=== PATIENT | female | born 1960 | race Caucasian/White ===

== ENCOUNTER 2018-08-27 05:34 | Day surgery (SDC) | payer BC ==
--- NOTE | 2018-08-17 12:49 | HP ---
"CC: Dr. Konstantin Renteria; Dr. Alondra Reeves * ADMISSION HISTORY AND PHYSICAL: DATE OF ADMISSION: 08/27/18 ATTENDING SURGEON: Dr. Sade hTomas.* (DICTATED BY GUMARO ALVARENGA) CHIEF COMPLAINT: Hypercalcemia. HISTORY OF PRESENT ILLNESS: This is a 57-year-old generally healthy female, who on routine lab work in the fall of 2017 was found to have hypercalcemia. This was confirmed on repeat measurement and an intact PTH on 03/27/18 was elevated at 77.7 (upper limit of normal 73). She has had no symptoms or signs of hypercalcemia. Specifically, no known history of kidney stones or osteoporosis. She did undergo evaluation by Dr. Renteria and workup, which included an elevated 24-hour urine calcium. An ultrasound done on 04/08/18 showed bilateral thyroid nodules with calcifications measuring up to 9 mm in greatest dimension, but no evidence of additional nodules to account for a parathyroid adenoma. A nuclear medicine SPECT CT on that same date did show increased uptake in the lower pole of the right side possibly consistent with parathyroid adenoma. She did undergo fine needle aspiration biopsy of both thyroid nodules on 05/24/18 and these were benign. She was seen by Dr. Thomas on 05/17/18 and subsequently underwent a 4D CT scan of the neck, which showed no abnormalities in the neck itself. However, it did show a 4-cm ascending aortic aneurysm. She was referred for evaluation by Cardiology. Echocardiogram done on 07/06/18 did show fjgl-vq-yudgfnde dilation of the ascending aorta, measured at 4.3 cm. She was initiated on low-dose beta-bob by Dr. Lynch, which she has been taking, but not consistently (she was encouraged to maintain this consistently especially during the perioperative period). Her vitamin D and phosphorus levels have been normal. Dr. Thomas has discussed with her the indications for surgery, the risks, benefits, and alternatives. She understands the potential need for 4-gland exploration. She understands the expected perioperative course and would like to proceed as scheduled with parathyroidectomy. PAST MEDICAL HISTORY: Dilated ascending aorta as noted above. She has a single kidney as she donated a kidney to her brother. She has some evidence of fatty liver with mild elevation in transaminases. She has no history of heart disease per se, hypertension, asthma, COPD, or diabetes. No personal history of malignancy. She likely has some mixed hyperlipidemia. PAST SURGICAL HISTORY: Previous surgeries include , uterine ablation, and donation of kidney (she is not sure which side as it was done as laparoscopic- assisted). CURRENT MEDICATIONS: Atenolol 25 mg one-half tablet once daily. She takes no other uzro-zno-yxbbwuq medications or supplements on a regular basis. DRUG ALLERGIES: PENICILLIN (hives). FAMILY HISTORY: End-stage kidney disease in her brother as well as kidney stone disease in her father. No known history of anesthesia problems, bleeding or clotting disorders within her family. SOCIAL HISTORY: The patient is . She has 2 children living at home. 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 She denies use of tobacco. She drinks on average 5 drinks per week. She denies any other recreational drug use. REVIEW OF SYSTEMS: General: No recent constitutional symptoms or acute illnesses. Weight has been stable. HEENT: No problems reported. Cardiovascular: No chest pain, palpitations, or history of heart murmur. Respiratory: No history of asthma, chronic cough, or shortness of breath. GI: No problems reported. Colonoscopy done around age 50 for initial screening with no problems reported and no interval symptoms. : Single kidney. No other problems reported. SALES DEVELOPMENT MANAGER: She is up-to-date within the past year for breast exam and mammogram as well as within the past 3 to 5 years for pelvic exam and Pap smear, all reportedly normal. Endocrine: No diabetes or thyroid dysfunction. Thyroid function tests have been normal. Hyperparathyroidism as noted above. PHYSICAL EXAMINATION GENERAL: Well-nourished, mildly obese female, in no acute distress. VITAL SIGNS: Height 64 inches, weight 170 pounds. Blood pressure 118/82, pulse 60, respirations 16. HEENT: Pupils are equal, round, and reactive. EOMs intact. No conjunctival pallor. Oropharynx: Teeth in good repair. No intraoral lesions. Mucous membranes moist. NECK: No palpable masses or thyromegaly. No palpable lymphadenopathy. LUNGS: Clear to auscultation. No rales or wheezes. HEART: Regular rate and rhythm. No murmur noted. BREASTS: Not examined. ABDOMEN: Well-healed laparoscopic incisions as well as Pfannenstiel incision from the kidney donation. Soft, nontender to palpation. No palpable masses or organomegaly. GENITALIA: Not done. RECTAL: Not done. BACK: No spinous process or CVA tenderness. EXTREMITIES: No edema. NEUROLOGIC: Grossly intact. SKIN: Warm and dry. No suspicious rashes or lesions. IMPRESSION: Hyperparathyroidism; hypercalcemia. PLAN: Parathyroidectomy. GUMARO ALVARENGA [id number]/[facility] #: [id number] [facility]ERN[facility]"
[~2018-08-27 05:34] MED LIST: Buffered Lidocaine 1% SYRIN* 1 ML/SYRINGE INTRADERM ONE
[2018-08-27] MEDS ORDERED: Famotidine IV* 10 MG/ML 2 ML (20 mg) IV ONE (06:00)
[2018-08-27] MEDS ORDERED: Dexamethasone IV* 4 MG/ML 1 ML (4 MG) IV SLOW PU ONE (06:00)
[2018-08-27] MEDS ORDERED: Lactated Ringers 1000 ML Bag* 1,000 ML IV SCH (06:00)
[2018-08-27] MEDS ORDERED: Buffered Lidocaine 1% SYRIN* 1 ML/SYRINGE INTRADERM ONE (06:16)
[2018-08-27] MEDS ORDERED: Dexamethasone IV* 4 MG/ML 1 ML (4 MG) ONE (06:16)
[2018-08-27] MEDS ORDERED: Famotidine IV* 10 MG/ML 2 ML (20 mg) ONE (06:16)
[2018-08-27] MEDS ORDERED: Lidocaine 2% PF * 5 ML VIAL ONE (07:08)
[2018-08-27] MEDS ORDERED: fentaNYL* 50 MCG/ML 2 ML VIAL (100 MCG VIAL) ONE ×3 (07:08→09:59)
[2018-08-27] MEDS ORDERED: Succinylcholine* 20 MG/ML 10 ML VIAL ONE (07:08)
[2018-08-27] MEDS ORDERED: Midazolam* 1 MG/ML 5 ML VIAL (5 MG) ONE (07:08)
[2018-08-27] MEDS ORDERED: Propofol* 10 MG/ML 20 ML BTL ONE (07:08)
[2018-08-27] MEDS ORDERED: Lidocaine 1% INJ* 10 MG/ML 30 ML SDV ONE (07:10)
[2018-08-27] MEDS ORDERED: Bupivacaine 0.25% EPI 200,000* 30 ML SDV ONE (07:10)
[2018-08-27] MEDS ORDERED: Bupivacaine 0.25% SDV PF* 10 ML VIAL INJ ONE (07:11)
[2018-08-27] MEDS ORDERED: Naloxone* 0.4 MG/ML 1 ML VIAL IV PRN (07:38)
[2018-08-27] MEDS ORDERED: oxyCODONE/Acetamin 5/325 MG* TAB PO PRN (07:38)
[2018-08-27] MEDS ORDERED: DiMENhydriNATE IV* 50 MG/ML VIAL IV PUSH PRN (07:38)
[2018-08-27] MEDS ORDERED: fentaNYL* 50 MCG/ML 2 ML VIAL (100 MCG VIAL) IV PRN (07:38)
[2018-08-27] MEDS ORDERED: HYDROcodone/ACETAMIN 5-325 MG* 1 TAB PO PRN (07:38)
[2018-08-27] MEDS ORDERED: EPHEDrine (Pressors)* 50 MG/ML VIAL ONE (08:02)
[2018-08-27] MEDS ORDERED: Metoprolol Tartrate IV* 1 MG/ML 5 ML VIAL ONE (09:17)
[2018-08-27] MEDS ORDERED: PROCHLORPERAZINE INJ 5 MG/ML 2 ML VIAL ONE (10:02)
[2018-08-27] MEDS ORDERED: Ondansetron INJ* 2 MG/ML VIAL ONE (10:28)
[2018-08-27 12:27] VITALS: BP 133/79
--- NOTE | 2018-08-27 13:20 | OP ---
CC: Dr. Alondra Reeves; Dr. Konstantin Renteria* OPERATIVE REPORT: DATE OF OPERATION: 08/27/18 - [facility] DATE OF : 60 SURGEON: Sade Thomas MD ACCOUNTING MACHINE OPERATOR: Casandra Peacock MD ANESTHESIOLOGIST: Dr. Lamont Villafuerte. ANESTHESIA: General endotracheal anesthesia. PRE-OP DIAGNOSIS: Primary hyperparathyroidism. POST-OP DIAGNOSIS: Primary hyperparathyroidism. OPERATIVE PROCEDURE: Parathyroidectomy and 4-gland exploration. ESTIMATED BLOOD LOSS: Minimal, less than 10 cc. SPECIMEN: Right lower parathyroid. INDICATIONS FOR SURGERY: Ms. Caban is a very pleasant 57-year-old female with a history of primary hyperparathyroidism and she was also found to have elevated urinary calcium making her a candidate for a parathyroidectomy. She therefore wished to undergo a parathyroidectomy. She understood the risks, benefits, and alternatives to the procedure. She wished to proceed. Of note, on her preoperative imaging, one study the sestamibi showed uptake in the right lower thyroid region. DESCRIPTION OF PROCEDURE: The patient was brought back to the operating room and placed in the operating table in supine position, sequential compression devices were placed in the bilateral lower extremities for DVT prophylaxis. No antibiotics administered. The patient underwent general endotracheal anesthesia. The electrodes for the nerve monitor were attached. The patient's arms were tucked and her neck was extended. Prior to coming into the operating room, a midline has been placed to facilitate laboratory draws during the operation, time-out was performed verifying the patient's name, MR number, the procedure to be performed and then local anesthesia was infiltrated to her anterior neck. Local anesthesia consist of 0.25% Marcaine and 1% lidocaine. After this, the neck was prepped and draped in normal sterile fashion and prior to beginning the procedure, an additional time-out was performed verifying the patient's name, MR number and the procedure to be performed. Given that there was some evidence of localization in the right lower aspect of the thyroid gland , we began the exploration on the right side of the thyroid. An approximately 4 cm transverse incision was made in a natural crease sign about 3 fingerbreadths above the sternal notch. The skin was divided down to the subcutaneous tissue, the platysma was divided. The inferior and superior subplatysmal flaps were developed and then the median raphe between strap muscles was identified and divided. The isthmus was identified and the strap muscles were retracted laterally on either side. An Army-Tripp was used to retract the strap muscles on the right side and attention was turned towards developing the lateral space adjacent to the thyroid gland. Attention was turned towards first the right lower aspects of the thyroid. The right lower parathyroid was identified at the anterior lower aspect of the right thyroid lobe. It was clearly somewhat small, but also adenomatous in appearance. A small sample was taken for biopsy and it was confirmed with parathyroid tissue. Attention was turned towards the right upper, identified the right upper parathyroid, which was identified in its normal anatomic position posterior to the nerve and it appeared normal in appearance. After this, attention was turned towards the left side of the thyroid lobe. The strap muscles were retracted laterally and the lateral space adjacent to the thyroid was developed. The left upper parathyroid was identified very easily in a similar position to the right upper parathyroid and was posterior to the nerve. It did not appear to be adenomatous in appearance and then attention was turned towards identifying the left lower parathyroid. Despite extensive investigation and the normal location such as the diaphragmatic ligament adjacent to left thyroid lobe, there was one nodule that appeared to be left lower parathyroid that was very adherent to the thyroid lobe itself in a similar location to the right lower; however, this was not definitively identified. At this point, since the right lower parathyroid had been localized with sestamibi and it was clearly adenomatous, it was taken off of its pedicle and at that point x0, x5 and x10 blood samples were taken. Of note , the baseline were taken prior to beginning the operation. The laboratory values returned as baseline at 55.4, T0 at 21, T5 at 13.5 and T10 at 11.6. Given that [place] criterion was met, the decision was made to end the operation. Hemostasis was obtained on both the lateral neck and Tisseel was placed into lateral neck for hemostasis. Once this was done, the strap muscles were reapproximated using interrupted 3-0 Vicryl sutures. The platysma was reapproximated using 3-0 Vicryl sutures. Again, hemostasis was obtained and then the skin was closed using running 4-0 Prolene suture and then sterile dressing was placed. At the end of the case, all counts were correct and I was present during the entirety of the case. The patient's anesthesia was reversed and she was taken to the PACU in stable condition. [id number]/[facility] #: [id number] CARLOS
[2018-08-27] MEDS ORDERED: oxyCODONE/Acetamin 5/325 MG* TAB ONE (13:59)
== END 2018-08-27 15:41 | disposition home or self-care (01) ==
LOC: OR 05:34
PROVIDERS: ATTEND Surgery
DX: E21.0 Primary hyperparathyroidism (principal); D35.1 Benign neoplasm of parathyroid gland; Z90.5 Acquired absence of kidney; K76.0 Fatty (change of) liver, not elsewhere classified; I71.4 Abdominal aortic aneurysm, without rupture; E78.5 Hyperlipidemia, unspecified
CPT/HCPCS: 36415; 83970; 88305; 88331; A9270-GY; C1776; J0330; J0780; J1100; J2250; J2405; J2704; J3010; J3490